=== PATIENT | female | born 1960 | race Caucasian/White ===

== ENCOUNTER → 2020-02-29 16:26 | Outpatient (BNVA) | payer MEDICARE, MEDICAID, SELFPAY | PROVIDERS: Family Provider Family Medicine; PCP Nurse Practitioner Primary Care; Visit Provider Internal Medicine | DX: Z11.59 Encounter for screening for other viral diseases (principal) | CPT/HCPCS: 87635 ==

== ENCOUNTER 2020-03-06 08:21 | Day surgery (SDC) | payer MEDICARE, MEDICAID, SELFPAY ==
[2020-03-03 13:08] VITALS: BMI 30.9
[2020-03-06 08:42] VITALS: BP 144/79; PULSE 68; RESP 18; TEMP 36.1; O2SAT 99
[2020-03-06] MEDS: sodium chloride 0.9% 1,000 ML 30 ML IV (08:52)
--- NOTE | 2020-03-06 09:04 | ANES.PREANE2 ---
Pre-Anesthetic Assessment Pre-Anesthetic Assessment: Height/Weight: Height 1.65 m Weight 84.368 kg Temp Pulse Resp BP Pulse Ox 97 F L 68 18 144/79 99 03/06/20 08:42 03/06/20 08:42 03/06/20 08:42 03/06/20 08:42 03/06/20 08:42 Preop Diagnosis: Epigastric pain Proposed Procedure: Operation Date: 03/06/20 09:30 Proposed Procedures p EGD [id number] K30(Not Applicable) - Arun Newman MD Familial anesthetic complications: None Was Beta Chris taken within 24 hours: N/A Last intake: Intake Last Liquid Date 03/05/20 Last Liquid Time 23:00 Last Solid Date 03/05/20 Last Solid Time 23:00 Social: Social History: No alcohol and No tobacco Exam: Pre-Anes Outpt Exam: alert, oriented x 3, clear to auscultation bilaterally and regular rate & rhythm Airway: Cervical ROM: WNL MP: 3 Dentition: False CV/HEM: CV/HEM: HTN GI: GI: GERD Anesthetic Plan: ASA status: 2 Anesthesia: MAC Other Pertinent Information: Patient asked if she could return to work after procedure. Informed patient she should not return to work until tomorrow. Meds/Allergies Current Medications: Current Medications Generic Name Dose Route Start Last Admin Trade Name Freq PRN Reason Stop Dose Admin Sodium Chloride 1,000 mls @ 30 ml s/hr 03/06/20 08:45 03/06/20 08:52 Sodium Chloride 0.9% IV 30 mls/hr .Q24H DEMI Administration PFSH Anesthesia PFSH: Family History (Updated 02/29/20 @ 14:[address]) Other Cancer Diabetes Heart disease Social History (Updated 02/29/20 @ 14:[address]) Smoking and tobacco status: never smoked Alcohol intake: never History of recent travel: No Data Anesthesia Cardiac Studies: No Data to Display
--- NOTE | 2020-03-06 09:30 | W.PM.OPSUD ---
Surgery/Procedure H&P Update DATE OF PROCEDURE: March 06, 2020 DATE H&P PERFORMED: 02/29/20 PREOP DIAGNOSIS: Epigastric pain PLANNED PROCEDURE: Operation Date: 03/06/20 09:30 Proposed Procedures p EGD [id number] K30(Not Applicable) - Arun Newman MD
[2020-03-06 10:20] VITALS: BP 132/83; PULSE 66; RESP 16; TEMP 36.1; O2SAT 100
[2020-03-06 10:30] VITALS: BP 128/75; PULSE 65; RESP 18; O2SAT 100
--- NOTE | 2020-03-06 10:45 | ANE.PACU2 ---
Inpatient post-anesthesia follow up: Airway intact: Yes Vital signs: Temperature 97.0 F Pulse Rate 65 Respiratory Rate 18 Blood Pressure 128/75 Pulse Oximetry 100 Oxygen Delivery Me thod Room Air Oxygen Flow Rate 3 Fraction of Inspir ed Oxygen Hydration adequate: Yes Nausea and vomiting: No Pain level: 1 Mental status: Baseline
[2020-03-07 10:03] LABS: H. Pylori / CLO Test Negative
== END 2020-03-06 10:48 | disposition home or self-care (01) ==
PROVIDERS: PCP Nurse Practitioner; Visit Provider Internal Medicine
PROC: 0DJ08ZZ Inspection of Upper Intestinal Tract, Via Natural or Artificial Opening Endoscopic (ICD-10-PCS; CPT 43235; principal; 2020-03-06 09:30)
DX: R10.13 Epigastric pain (principal); K29.70 Gastritis, unspecified, without bleeding; I10 Essential (primary) hypertension; K21.9 Gastro-esophageal reflux disease without esophagitis; Z82.49 Family history of ischemic heart disease and other diseases of the circulatory system; Z83.3 Family history of diabetes mellitus
CPT/HCPCS: 12345; 43239; 87077; J2704; J7030

== ENCOUNTER 2020-08-02 08:08 | Outpatient (CLI) | payer MEDICARE, MEDICAID, SELFPAY ==
--- NOTE | 2020-08-02 08:21 | FL_ITS ---
WS: [id number] DOUBLE CONTRAST UPPER GI EXAMINATION HISTORY: K29.70 - Gastritis, unspecified, without bleeding COMPARISON: None available. FLUOROSCOPY TIME: 1.5 minutes. Barium traveled readily through the esophagus into the stomach. No esophageal strictures. With the pa tient in supine and prone positioning a large hiatal hernia with reflux is noted during the examinati on. Intermittent visualization of a hiatal hernia but significant in size. Duodenal needle bulb was n ormal. No delay in emptying of barium. Small to moderate amount of reflux into the distal esophagus. FL/FL upper GI w air* [id number] IMPRESSION: 1. Large, intermittently visualized hiatal hernia with mild gastroesophageal r eflux. 2. Normal duodenal bulb.
== END 2020-08-02 08:09 | disposition home or self-care (01) ==
LOC: RADWPI 08:10
PROVIDERS: PCP Nurse Practitioner; Visit Provider Surgery
DX: K29.70 Gastritis, unspecified, without bleeding (principal); K44.9 Diaphragmatic hernia without obstruction or gangrene
CPT/HCPCS: 74246